=== PATIENT | female | born 1960 | race Caucasian/White ===

== ENCOUNTER 2018-03-25 08:02 | Emergency (ER) | payer MEDICARE, OTHER ==
[2018-03-25 08:27] VITALS: TEMP 97.9; BMI 27.3
--- NOTE | 2018-03-25 08:37 | PDOC ---
History of Present Illness - General Chief Complaint: Pain Stated Complaint: ABD PAIN Time Seen by Provider: 03/25/18 08:32 - History of Present Illness Initial Comments: 03/25/18 08:33 55 yo F history CVID, regenerative liver nodule, pulmonary fibrosis, pulmonary HTN, ITP s/p splenectomy, gastric erosions (found on EGD/colonoscopy few weeks ago) presents with diarrhea since night. Patient has has multiple episodes of vomiting and diarrhea on night/ early Sunday morning that got better over the weekend only to resume this morning. Patient has been on Amoxicillin for the past month for treatment of H.influenza. Patient is feeling weak but has managed to eat scramble eggs yesterday. Patient is coughing at baseline. Past History - Past Medical History Allergies/Adverse Reactions: Allergies Allergy/AdvReac Type Severity Reaction Status Date / Time levofloxacin [From Levaquin] Allergy Rash Verified 03/25/18 08:14 Home Medications: Ambulatory Orders Budesonide/Formeterol Fumarate [SYMBICORT 80/4.5mcg -] 1 inh PO BID 09/10/15 Folic Acid 1 mg PO DAILY 09/10/15 Gabapentin [Neurontin -] 300 mg PO BID 09/10/15 Oxycodone HCl 10 mg PO Q8H 09/10/15 Ursodiol 250 mg PO TID 09/10/15 Amoxicillin - [Amoxicillin 500mg Capsule -] 500 mg PO BID 03/25/18 Lisinopril/Hydrochlorothiazide [Lisinopril-Hctz 10-12.5 mg Tab] 1 each PO DAILY 03/25/18 Nadolol 10 mg PO BID 03/25/18 Sildenafil Citrate [Revatio] 20 mg PO TID 03/25/18 Anemia: Yes (Hemolytic anemia, ITP) COPD: No CHF: No GI Disorders: Yes (regenerative hyperplagia) HTN: Yes (pulmonary htn) Liver Disease: Yes (regenerative liver nodules) - Surgical History Abdominal Surgery: Yes (splenectomy for ITP) - Immunization History Td Vaccination: Yes TDAP Vaccination: Yes Immunization Up to Date: Yes - Suicide/Smoking/Psychosocial Hx Smoking Status: No Smoking History: Never smoked Have you smoked in the past 12 months: No Number of Cigarettes Smoked Daily: 0 If you are a former smoker, when did you quit?: 1997 Information on smoking cessation initiated: No Hx Alcohol Use: No Drug/Substance Use Hx: No Substance Use Type: None Review of Systems - Review of Systems Able to Perform ROS?: Yes Is the patient limited Albanian proficient: No Constitutional: Yes: Weakness HEENTM: No: Symptoms Reported Respiratory: No: Symptoms reported Cardiac (ROS): No: Symptoms Reported ABD/GI: Yes: See HPI : No: Symptoms Reported Musculoskeletal: No: Symptoms Reported Integumentary: No: Symptoms Reported All Other Systems: Reviewed and Negative *Physical Exam - Vital Signs Last Vital Signs Temp Pulse Resp BP Pulse Ox 97.9 F 75 16 106/65 100 03/25/18 08:21 12 08:21 12 08:21 03/25/18 08:21 03/25/18 08:21 - Physical Exam General Appearance: Yes: Nourished, Appropriately Dressed. No: Apparent Distress HEENT: positive: EOMI, INGRID, Normal ENT Inspection Respiratory/Chest: positive: Crackles. negative: Chest Tender Cardiovascular: positive: Regular Rhythm, Regular Rate, S1, S2 Gastrointestinal/Abdominal: positive: Normal Bowel Sounds, Tender (mildly tender b/l upper quadrants.), Flat, Soft Extremity: positive: Delayed Capillary Refill. negative: Pedal Edema Integumentary: positive: Dry, Pale Neurologic: positive: Fully Oriented, Alert, Normal Mood/Affect, Normal Response , Motor Strength 5/5 Moderate Sedation - Procedure Monitoring Vital Signs: Procedure Monitoring Vital Signs Temperature 97.9 F 03/25/18 08:21 Pulse Rate 75 03/25/18 08:21 Respiratory Rate 16 03/25/18 08:21 Blood Pressure 106/65 03/25/18 08:21 O2 Sat by Pulse Oximetry (%) 100 03/25/18 08:21 ED Treatment Course - LABORATORY CBC & Chemistry Diagram: 03/25/18 13:24 03/25/18 09:10 Medical Decision Making - Medical Decision Making 03/25/18 10:28 58F immunocompromised with diarrhea and vomiting. C.diff vs viral gastro enteritis vs opportunist infection Due to the patientr being compromised she is at risk for opportunist infections , especially from encapsulated bascteria. Will get basic labs, stool guaiac and cultures. . Spoke to Dr. Maddox to let her know patient was here. Will call back with update *DC/Admit/Observation/Transfer Diagnosis at time of Disposition: Viral gastroenteritis - Discharge Dispostion Disposition: HOME Condition at time of disposition: Improved - Referrals Referrals: Aurora Glez MD [Primary Care Provider] - - Patient Instructions Printed Discharge Instructions: DI for Dehydration -- Adult Additional Instructions: As discussed, follow up with Dr. Maddox tomorrow in the office. Your stool testing was positive for blood. While this may be due to your known gastric erosions, it must be followed up to make sure it is not due to a mass or cancer. Drink plenty of fluids and stay hydrated. Return to the emergency department if you have any new, worsening, or concerning symptoms - Post Discharge Activity
[2018-03-25] MEDS ORDERED: SODIUM CHLORIDE 1,000 ML IV STA (09:18)
[2018-03-25] MEDS ORDERED: ONDANSETRON 4 MG/2 ML VIAL IVPUSH ONE (09:32)
[2018-03-25] MEDS ORDERED: ONDANSETRON 4 MG/2 ML VIAL ONE (09:33)
--- NOTE | 2018-03-25 09:46 | PDOC ---
Attending Attestation - Resident Resident Name: MartinJosé Miguel - ED Attending Attestation I have performed the following: I have examined & evaluated the patient, The case was reviewed & discussed with the resident, I agree w/resident's findings & plan, Exceptions are as noted - HPI HPI: 03/25/18 09:46 58yo F hx CVID c/b MAC, pulmonary fibrosis, pulmonary HTN, ITP s/p splenectomy, gastric erosions presents to the ED with 3 days of diarrhea, nausea, and generalized weakness. Also reports intermittent subjective fevers. Pt reports diarrhea was initially yellow, now is regular brown. Very watery in nature, denies blood. Reports innumerable episodes of diarrhea, at times incontinent. Pt states she is often on abx as she is colonized. Reports upper abd cramping intermittently. Denies CP, SOB, headache, back pain, dysuria, frequency, focal weakness/numbness - Physicial Exam PE: 03/25/18 09:52 GENERAL: Awake, alert, and fully oriented, in no acute distress EYES: PERRLA, EOMI, sclera anicteric, conjunctiva clear ENT: Nares patent, oropharynx clear without exudates. dry mucosa NECK: Normal ROM, supple, no lymphadenopathy, JVD, or masses LUNGS: Breath sounds equal, clear to auscultation bilaterally. No wheezes, and no crackles HEART: Regular rate and rhythm, normal S1 and S2, no murmurs, rubs or gallops ABDOMEN: Soft, nontender, normoactive bowel sounds. No guarding, no rebound. No masses EXTREMITIES: Normal range of motion, no edema. No clubbing or cyanosis. No cords, erythema, or tenderness NEUROLOGICAL: Normal speech, cranial nerves intact, 5/5 strength in all 4 extremities, normal sensation to light touch in all 4 extremities, normal cerebellar exam, normal gait, normal tone SKIN: Warm, Dry, normal turgor, no rashes or lesions noted. - Medical Decision Making 03/25/18 09:56 58yo F with MMP including CVID c/b MAC, splenectomy presents to the ED with diarrhea, nausea, and weakness. Vitals unremarkable. Exam with dry MM, no abd ttp. DDx includes colitis possibly c.diff vs GIB vs gastroenteritis. Plan: -labs -stool occult -UA -IVF -discuss with PMD -dispo 03/25/18 14:20 W/u remarkable only for positive stool occult CBC was repeated after 4 hours found to be stable Remaining labs/UA wnl Case discussed with Dr. Miguel, wants to see pt in office tomorrow Will f/u on stool occult, refer to GI Pt ambulating in ED, feels well. Encouraged to keep drinking fluids I discussed the physical exam findings, ancillary test results and final diagnoses with the patient. I answered all of the patient's questions. The patient was satisfied with the care received and felt comfortable with the discharge plan and treatment plan. The patient will call their primary care physician within 24 hours to arrange follow-up and will return to the Emergency Department with any new, persistent or worsening symptoms.
[2018-03-25 09:54] LABS: BASO % 0.4 % (0-2.0); EOS % 0.2 % (0-4.5); HEMATOCRIT 46.7 % (32.4-45.2); HEMOGLOBIN 14.6 GM/dL (10.7-15.3); LYMPH % 17.3 % (8-40); MCH 29.3 pg (25.7-33.7); MCHC 31.3 g/dl (32.0-36.0); MEAN CELL VOLUME 93.8 fl (80-96); MEAN PLT VOLUME 11.7 fl (7.5-11.1); MONO % 12.7 % (3.8-10.2); NEUT % 69.4 % (42.8-82.8); PLATELET COUNT 201 K/MM3 (134-434); RBC 4.97 M/mm3 (3.60-5.2); RDW 16.3 % (11.6-15.6); WHITE BLOOD COUNT 4.8 K/mm3 (4.0-10.0)
[2018-03-25 10:26] LABS: ALBUMIN 3.1 g/dl (3.4-5.0); ALK PHOS 228 U/L (45-117); ANION GAP 6 MMOL/L (8-16); BILIRUBIN,TOTAL 0.5 mg/dL (0.2-1); BLOOD UREA NITROGEN 24 mg/dL (7-18); CALCIUM 8.4 mg/dL (8.5-10.1); CHLORIDE 101 mmol/L (98-107); CO2 29 mmol/L (21-32); CREATININE 0.8 mg/dL (0.55-1.3); GLUCOSE,RANDOM 82 mg/dL (74-106); POTASSIUM 4.3 mmol/L (3.5-5.1); SGOT/AST 30 U/L (15-37); SGPT/ALT 24 U/L (13-61); SODIUM 136 mmol/L (136-145); TOT PROT 6.5 g/dl (6.4-8.2)
[2018-03-25 10:51] LABS: INR 1.07 (0.83-1.09); PROTHROMBIN TIME (PATIENT) 12.6 SEC (9.7-13.0)
[2018-03-25 10:54] LABS: ACTIVATED PTT 31.9 SECONDS (25.2-36.5)
[2018-03-25 13:17] LABS: URINE APPEARANCE CLEAR; URINE BILIRUBIN NEGATIVE (<2.0 mg/dL); URINE COLOR LTYELLOW; URINE GLUCOSE (UA) NEGATIVE (NEGATIVE); URINE KETONE NEGATIVE (NEGATIVE); URINE LEUK ESTERASE TRACE (NEGATIVE); URINE NITRITE NEGATIVE (NEGATIVE); URINE PROTEIN NEGATIVE (NEGATIVE); URINE UROBILINOGEN NEGATIVE mg/dL (0.2-1.0)
[2018-03-25 13:31] LABS: EPI CELLS RARE /HPF (FEW); URINE MUCUS RARE
[2018-03-25 14:18] LABS: HEMATOCRIT 44.6 % (32.4-45.2); HEMOGLOBIN 15.3 GM/dL (10.7-15.3); MCH 31.4 pg (25.7-33.7); MCHC 34.3 g/dl (32.0-36.0); MEAN CELL VOLUME 91.8 fl (80-96); MEAN PLT VOLUME 12.2 fl (7.5-11.1); PLATELET COUNT 170 K/MM3 (134-434); RBC 4.86 M/mm3 (3.60-5.2); RDW 17.1 % (11.6-15.6); WHITE BLOOD COUNT 4.7 K/mm3 (4.0-10.0)
[2018-03-25 16:58] VITALS: BP 136/58; PULSE 69
== END 2018-03-25 16:00 | disposition home or self-care (01) ==
LOC: JER 08:02
PROC: 3E033GC Introduction of Other Therapeutic Substance into Peripheral Vein, Percutaneous Approach (ICD-10-PCS; principal; 2018-03-25)
PROC: 3E0337Z Introduction of Electrolytic and Water Balance Substance into Peripheral Vein, Percutaneous Approach (ICD-10-PCS; 2018-03-25)
DX: A08.4 Viral intestinal infection, unspecified (principal); I10 Essential (primary) hypertension; D58.9 Hereditary hemolytic anemia, unspecified; I27.20 Pulmonary hypertension, unspecified
CPT/HCPCS: 36415; 71046-TC-FY; 80053; 81003; 81015; 82272; 85025; 85027; 85610; 85730; 86850; 86900; 86901; 87045; 87046; 87086; 87324; 87449; 96361; 96374; 99283-25; J7030

== ENCOUNTER 2021-01-21 20:50 | Emergency (ER) | payer MEDICARE, OTHER ==
[2021-01-21 20:56] VITALS: BP 137/64; PULSE 75; TEMP 98; BMI 25.9
[2021-01-21 23:40] LABS: BASO % 0.3 % (0-2.0); EOS % 0.9 % (0-4.5); HEMATOCRIT 34.1 % (32.4-45.2); LYMPH % 13.5 % (8-40); MCH 29.1 pg (25.7-33.7); MCHC 32.2 g/dl (32.0-36.0); MEAN CELL VOLUME 90.3 fl (80-96); MEAN PLT VOLUME 8.7 fl (7.5-11.1); MONO % 20.9 % (3.8-10.2); NEUT % 64.4 % (42.8-82.8); PLATELET COUNT 457 10^3/uL (134-434); RBC 3.78 M/mm3 (3.60-5.2); RDW 17.1 % (11.6-15.6); WHITE BLOOD COUNT 10.4 K/mm3 (4.0-10.0)
[2021-01-22 00:01] LABS: CHLORIDE 105 mmol/L (98-107); SODIUM 143 mmol/L (136-145)
[2021-01-22 00:04] LABS: CALCIUM 8.8 mg/dL (8.5-10.1)
[2021-01-22 00:05] LABS: ALBUMIN 2.6 g/dl (3.4-5.0); ANION GAP 1 MMOL/L (8-16); BLOOD UREA NITROGEN 10.3 mg/dL (7-18); CO2 37 mmol/L (21-32); GLUCOSE,RANDOM 86 mg/dL (74-106)
[2021-01-22 00:08] LABS: CREATININE 0.5 mg/dL (0.55-1.3); SGOT/AST 19 U/L (15-37); SGPT/ALT 11 U/L (13-61)
[2021-01-22 00:10] LABS: BILIRUBIN,TOTAL 0.7 mg/dL (0.2-1); TOT PROT 6.6 g/dl (6.4-8.2)
[2021-01-22 00:11] LABS: ALK PHOS 309 U/L (45-117)
[2021-01-22 02:49] LABS: ANISOCYTOSIS 1+; CORRECTED WBC 9.37 K/mm3; MACROCYTOSIS 2+; PLATELET ESTIMATE NORMAL; TARGET CELLS 2+
== END 2021-01-22 01:06 | disposition home or self-care (01) ==
LOC: JER 20:50
DX: R60.9 Edema, unspecified (principal); S90.211A Contusion of right great toe with damage to nail, initial encounter; T88.7XXA Unspecified adverse effect of drug or medicament, initial encounter
CPT/HCPCS: 36415; 73610-TC-RT-FY; 73630-TC-RT-FY; 80053; 84484; 85025; 93971-TC; 99284-25

== ENCOUNTER 2021-11-20 09:59 | Inpatient (IN) | payer MEDICARE, OTHER ==
[2021-11-20 11:01] LABS: EPI CELLS 36 /uL (0-25.1); HYALINE CASTS 8 /uL (0-3.1); URINE APPEARANCE TURBID; URINE BACTERIA >9,000 /uL (0-1359); URINE BILIRUBIN 1+ (NEGATIVE); URINE COLOR DK YELLOW; URINE GLUCOSE (UA) NEGATIVE (NEGATIVE); URINE KETONE NEGATIVE (NEGATIVE); URINE LEUK ESTERASE 3+ (NEGATIVE); URINE NITRITE NEGATIVE (NEGATIVE); URINE PROTEIN TRACE (NEGATIVE); URINE RBC 12 /uL (0-23.9); URINE WBC 836 /uL (0-25.8)
[2021-11-20] MEDS ORDERED: CEFTRIAXONE 1,000 MG in DEXTROSE 5%-WATER - 50 ML IVPB ONE (11:04)
[2021-11-20 11:36] LABS: HEMATOCRIT 37.9 % (32.4-45.2); HEMOGLOBIN 12.4 GM/dL (10.7-15.3); MCH 30.4 pg (25.7-33.7); MCHC 32.7 g/dl (32.0-36.0); MEAN CELL VOLUME 92.9 fl (80-96); MEAN PLT VOLUME 10.7 fl (7.5-11.1); PLATELET COUNT 441 10^3/uL (134-434); RBC 4.08 M/mm3 (3.60-5.2); RDW 20.3 % (11.6-15.6); WHITE BLOOD COUNT 27.1 K/mm3 (4.0-10.0)
[2021-11-20 11:59] LABS: ALBUMIN 2.4 g/dl (3.4-5.0); MAGNESIUM 1.9 mg/dL (1.8-2.4)
[2021-11-20] MEDS ORDERED: CEFTRIAXONE 1 GM/50 ML BAG ONE (11:59)
[2021-11-20 12:02] LABS: CREATININE 0.9 mg/dL (0.55-1.3)
[2021-11-20 12:03] LABS: BILIRUBIN,TOTAL 3.6 mg/dL (0.2-1); TOT PROT 5.1 g/dl (6.4-8.2)
[2021-11-20 12:15] LABS: BILIRUBIN,DIRECT 1.7 mg/dL (0.0-0.2)
[2021-11-20] MEDS ORDERED: SODIUM CHLORIDE 0.9% 500 ML INFUS.BAG IV ONE (12:19)
[2021-11-20] MEDS ORDERED: DEXAMETHASONE SOD PHOSPHATE 10 MG/1 ML VIAL IVPUSH ONE (12:22)
[2021-11-20] MEDS ORDERED: DEXAMETHASONE SOD PHOSPHATE 10 MG/1 ML VIAL ONE (12:32)
[2021-11-20] MEDS ORDERED: BUDESONIDE/FORMETEROL FUMARATE 160/4.5 mcg INHALER IH ONE (16:10)
[2021-11-20] MEDS ORDERED: ALBUTEROL SO4 2.5/IPRATROPIUM 0.5 INH SOL 3 ML VIAL.NEB. NEB PRN (16:14)
[2021-11-20 18:38] VITALS: BMI 25.5
[2021-11-20] MEDS: URSODIOL 300 MG CAPSULE PO SCH (22:13)
[2021-11-20] MEDS: SILDENAFIL CITRATE 20 MG TAB PO SCH (22:13)
[2021-11-20] MEDS: ACETAMINOPHEN 325 MG TABLET (FP) PO PRN (22:18)
[2021-11-20] MEDS ORDERED: oxyCODONE HCL 5 MG TABLET PO ONE (22:38)
[2021-11-21] MEDS: DEXAMETHASONE SOD PHOSPHATE 10 MG/1 ML VIAL IVPUSH SCH ×3 (02:51→17:54)
[2021-11-21] MEDS: SILDENAFIL CITRATE 20 MG TAB PO SCH ×3 (05:17→23:16)
[2021-11-21] MEDS: URSODIOL 300 MG CAPSULE PO SCH ×3 (05:17→23:22)
[2021-11-21] MEDS ORDERED: CEFEPIME 2 GM in DEXTROSE 5%-WATER 100 ML IVPB SCH ×2 (10:00→18:00)
[2021-11-21] MEDS ORDERED: CEFEPIME 2 GM in DEXTROSE 5%-WATER - 100 ML IVPB SCH (10:00)
[2021-11-21] MEDS ORDERED: VANCOMYCIN 1 GM/200 ML PREMIX BAG IVPB SCH ×2 (10:00)
[2021-11-21 10:04] LABS: ALBUMIN 2.2 g/dl (3.4-5.0); CALCIUM 10.6 mg/dL (8.5-10.1)
[2021-11-21 10:05] LABS: BLOOD UREA NITROGEN 21.4 mg/dL (7-18)
[2021-11-21 10:07] LABS: CREATININE 0.5 mg/dL (0.55-1.3); PHOSPHOROUS 2.8 mg/dL (2.5-4.9)
[2021-11-21 10:09] LABS: TOT PROT 4.8 g/dl (6.4-8.2)
[2021-11-21 10:10] LABS: N-TERMINAL BNP 1913.1 pg/ml (5-125)
[2021-11-21] MEDS: ENOXAPARIN NA (PORCINE) 40 MG/0.4 ML DISP.SYRIN SQ SCH (10:32)
[2021-11-21] MEDS: NADOLOL 20 MG TABLET (FP) PO SCH (10:41)
[2021-11-21 11:56] LABS: HEMATOCRIT 39.3 % (32.4-45.2); HEMOGLOBIN 12.7 GM/dL (10.7-15.3); MCHC 32.3 g/dl (32.0-36.0); MEAN CELL VOLUME 92.9 fl (80-96); MEAN PLT VOLUME 11.1 fl (7.5-11.1); PLATELET COUNT 399 10^3/uL (134-434); RBC 4.23 M/mm3 (3.60-5.2); RDW 19.6 % (11.6-15.6)
[2021-11-21 11:57] LABS: INR 1.92 (0.83-1.09); PROTHROMBIN TIME (PATIENT) 22.2 SEC (9.7-13.0)
[2021-11-21 11:59] LABS: ACTIVATED PTT 35.4 SECONDS (25.2-36.5)
[2021-11-21 12:31] LABS: ANISOCYTOSIS 1+; MACROCYTOSIS 1+; TARGET CELLS 3+
[2021-11-21] MEDS: FUROSEMIDE 40 MG/4 ML INJECTABLE VIAL IVPUSH SCH (13:10)
[2021-11-21] MEDS ORDERED: REMDESIVIR 200 MG in SODIUM CHLORIDE 250 ML IVPB ONE (14:00)
[2021-11-21] MEDS: AZITHROMYCIN IVPB 500 MG/250 ML BAG IVPB SCH (16:04)
[2021-11-21] MEDS: PIPERACILLIN/TAZOB 4.5 GM 4.5 GM in DEXTROSE 5%-WATER 100 ML IVPB SCH (17:54)
[2021-11-21] MEDS: NYSTATIN 500,000 UNITS/5 ML SUSPENSION PO SCH ×2 (17:54→23:19)
[2021-11-21] MEDS: ACETAMINOPHEN 325 MG TABLET (FP) PO PRN (23:19)
[2021-11-22] MEDS: PIPERACILLIN/TAZOB 4.5 GM 4.5 GM in DEXTROSE 5%-WATER 100 ML IVPB SCH ×2 (02:39→09:55)
[2021-11-22] MEDS: DEXAMETHASONE SOD PHOSPHATE 10 MG/1 ML VIAL IVPUSH SCH ×3 (02:40→17:11)
[2021-11-22] MEDS: SILDENAFIL CITRATE 20 MG TAB PO SCH ×3 (06:16→21:26)
[2021-11-22] MEDS: URSODIOL 300 MG CAPSULE PO SCH ×2 (06:16→14:18)
[2021-11-22] MEDS: NYSTATIN 500,000 UNITS/5 ML SUSPENSION PO SCH ×3 (06:16→17:10)
[2021-11-22] MEDS: FUROSEMIDE 40 MG/4 ML INJECTABLE VIAL IVPUSH SCH (09:50)
[2021-11-22] MEDS: ENOXAPARIN NA (PORCINE) 40 MG/0.4 ML DISP.SYRIN SQ SCH (09:54)
[2021-11-22] MEDS: oxyCODONE HCL 5 MG TABLET PO PRN ×3 (10:05→21:26)
[2021-11-22] MEDS: NADOLOL 20 MG TABLET (FP) PO SCH (10:42)
[2021-11-22 11:18] LABS: HEMATOCRIT 37.5 % (32.4-45.2); HEMOGLOBIN 12.1 GM/dL (10.7-15.3); MCH 30.4 pg (25.7-33.7); MCHC 32.4 g/dl (32.0-36.0); MEAN PLT VOLUME 11.5 fl (7.5-11.1); PLATELET COUNT 338 10^3/uL (134-434); RBC 3.99 M/mm3 (3.60-5.2); RDW 20.7 % (11.6-15.6)
[2021-11-22 11:27] LABS: WHITE BLOOD COUNT 34.1 K/mm3 (4.0-10.0)
[2021-11-22 11:58] LABS: ALBUMIN 2.4 g/dl (3.4-5.0); BLOOD UREA NITROGEN 17.1 mg/dL (7-18); MAGNESIUM 1.8 mg/dL (1.8-2.4)
[2021-11-22 12:01] LABS: CREATININE 0.5 mg/dL (0.55-1.3); PHOSPHOROUS 2.5 mg/dL (2.5-4.9)
[2021-11-22 12:03] LABS: BILIRUBIN,TOTAL 3.1 mg/dL (0.2-1); TOT PROT 4.9 g/dl (6.4-8.2)
[2021-11-22] MEDS: AZITHROMYCIN IVPB 500 MG/250 ML BAG IVPB SCH (12:13)
[2021-11-22 12:32] LABS: ANISOCYTOSIS 0; MACROCYTOSIS 1+; TARGET CELLS 2+
[2021-11-22] MEDS: CEFEPIME 2 GM in DEXTROSE 5%-WATER 100 ML IVPB SCH ×2 (13:08→17:10)
[2021-11-22] MEDS: REMDESIVIR 100 MG in SODIUM CHLORIDE 250 ML IVPB SCH (14:18)
[2021-11-22] MEDS: ACETAMINOPHEN 325 MG TABLET (FP) PO PRN (21:24)
[2021-11-22] MEDS: diphenhydrAMINE HCL 25 MG CAPSULE (FP) PO PRN (21:26)
[2021-11-23] MEDS: URSODIOL 300 MG CAPSULE PO SCH ×4 (01:41→21:55)
[2021-11-23] MEDS: NYSTATIN 500,000 UNITS/5 ML SUSPENSION PO SCH ×4 (01:43→17:07)
[2021-11-23] MEDS: SILDENAFIL CITRATE 20 MG TAB PO SCH ×3 (06:09→21:55)
[2021-11-23] MEDS: oxyCODONE HCL 5 MG TABLET PO PRN ×3 (06:21→19:47)
[2021-11-23] MEDS: NADOLOL 20 MG TABLET (FP) PO SCH (10:24)
[2021-11-23] MEDS: FUROSEMIDE 40 MG/4 ML INJECTABLE VIAL IVPUSH SCH (10:24)
[2021-11-23] MEDS: CEFEPIME 2 GM in DEXTROSE 5%-WATER 100 ML IVPB SCH ×3 (10:25→17:22)
[2021-11-23] MEDS: ENOXAPARIN NA (PORCINE) 40 MG/0.4 ML DISP.SYRIN SQ SCH ×2 (10:25→10:42)
[2021-11-23] MEDS: ACETAMINOPHEN 325 MG TABLET (FP) PO PRN (10:26)
[2021-11-23] MEDS ORDERED: DEXAMETHASONE SOD PHOSPHATE 10 MG/1 ML VIAL IVPUSH SCH (10:30)
[2021-11-23] MEDS: DEXAMETHASONE SOD PHOSPHATE 10 MG/1 ML VIAL IVPUSH SCH (10:53)
[2021-11-23] MEDS: AZITHROMYCIN IVPB 500 MG/250 ML BAG IVPB SCH (10:55)
[2021-11-23 12:18] LABS: HEMATOCRIT 36.9 % (32.4-45.2); MCH 30.7 pg (25.7-33.7); MCHC 32.4 g/dl (32.0-36.0); MEAN CELL VOLUME 94.8 fl (80-96); MEAN PLT VOLUME 11.2 fl (7.5-11.1); PLATELET COUNT 307 10^3/uL (134-434); RBC 3.89 M/mm3 (3.60-5.2); RDW 20.7 % (11.6-15.6)
[2021-11-23 12:28] LABS: WHITE BLOOD COUNT 31.9 K/mm3 (4.0-10.0)
[2021-11-23 12:48] LABS: ALBUMIN 2.3 g/dl (3.4-5.0); BLOOD UREA NITROGEN 15.1 mg/dL (7-18); CALCIUM 10.6 mg/dL (8.5-10.1)
[2021-11-23 12:50] LABS: CREATININE 0.5 mg/dL (0.55-1.3)
[2021-11-23 12:52] LABS: BILIRUBIN,TOTAL 2.9 mg/dL (0.2-1); TOT PROT 4.9 g/dl (6.4-8.2)
[2021-11-23 14:14] LABS: ANISOCYTOSIS 2+; MACROCYTOSIS 2+; TARGET CELLS 2+
[2021-11-23] MEDS: REMDESIVIR 100 MG in SODIUM CHLORIDE 250 ML IVPB SCH (14:29)
[2021-11-23] MEDS: POTASSIUM CHLORIDE TABS 20 MEQ TABLET.ER (FP) PO SCH (14:33)
[2021-11-24] MEDS: NYSTATIN 500,000 UNITS/5 ML SUSPENSION PO SCH ×4 (00:52→17:18)
[2021-11-24] MEDS: oxyCODONE HCL 5 MG TABLET PO PRN ×5 (01:20→22:38)
[2021-11-24] MEDS: CEFEPIME 2 GM in DEXTROSE 5%-WATER 100 ML IVPB SCH ×3 (01:40→17:18)
[2021-11-24] MEDS: SILDENAFIL CITRATE 20 MG TAB PO SCH ×3 (06:00→22:38)
[2021-11-24] MEDS: URSODIOL 300 MG CAPSULE PO SCH ×3 (06:23→22:39)
[2021-11-24] MEDS: FUROSEMIDE 40 MG/4 ML INJECTABLE VIAL IVPUSH SCH (09:16)
[2021-11-24] MEDS: POTASSIUM CHLORIDE TABS 20 MEQ TABLET.ER (FP) PO SCH (09:16)
[2021-11-24] MEDS: NADOLOL 20 MG TABLET (FP) PO SCH (09:16)
[2021-11-24] MEDS: ENOXAPARIN NA (PORCINE) 40 MG/0.4 ML DISP.SYRIN SQ SCH (09:22)
[2021-11-24] MEDS ORDERED: DEXAMETHASONE 4 MG TABLET (FP) PO SCH (10:00)
[2021-11-24] MEDS: AZITHROMYCIN IVPB 500 MG/250 ML BAG IVPB SCH (10:15)
[2021-11-24 12:07] LABS: HEMOGLOBIN 12.8 GM/dL (10.7-15.3); MCH 30.5 pg (25.7-33.7); MCHC 31.9 g/dl (32.0-36.0); MEAN CELL VOLUME 95.5 fl (80-96); MEAN PLT VOLUME 11.6 fl (7.5-11.1); PLATELET COUNT 300 10^3/uL (134-434); RBC 4.19 M/mm3 (3.60-5.2); RDW 20.8 % (11.6-15.6)
[2021-11-24 12:23] LABS: WHITE BLOOD COUNT 30.3 K/mm3 (4.0-10.0)
[2021-11-24 12:32] LABS: CALCIUM 10.8 mg/dL (8.5-10.1)
[2021-11-24 12:33] LABS: ALBUMIN 2.6 g/dl (3.4-5.0); BLOOD UREA NITROGEN 14.1 mg/dL (7-18)
[2021-11-24 12:36] LABS: CREATININE 0.4 mg/dL (0.55-1.3)
[2021-11-24 12:38] LABS: BILIRUBIN,TOTAL 3.4 mg/dL (0.2-1); TOT PROT 5.2 g/dl (6.4-8.2)
[2021-11-24 13:54] LABS: ANISOCYTOSIS 1+; MACROCYTOSIS 1+; PLATELET ESTIMATE NORMAL; TARGET CELLS 2+
[2021-11-24] MEDS ORDERED: IMMUN GLOB G(IGG)/PRO/IGA 0-50 400 ML, IMMUN GLOB G(IGG)/PRO/IGA 0-50 100 ML IVPB ONE (14:00)
[2021-11-24] MEDS: REMDESIVIR 100 MG in SODIUM CHLORIDE 250 ML IVPB SCH (14:25)
[2021-11-24] MEDS: diphenhydrAMINE HCL 25 MG CAPSULE (FP) PO PRN (15:38)
[2021-11-24] MEDS: ACETAMINOPHEN 325 MG TABLET (FP) PO PRN (15:38)
[2021-11-25] MEDS: NYSTATIN 500,000 UNITS/5 ML SUSPENSION PO SCH ×4 (00:17→17:23)
[2021-11-25] MEDS: CEFEPIME 2 GM in DEXTROSE 5%-WATER 100 ML IVPB SCH ×3 (01:53→17:23)
[2021-11-25] MEDS: SILDENAFIL CITRATE 20 MG TAB PO SCH ×3 (05:30→21:01)
[2021-11-25] MEDS: oxyCODONE HCL 5 MG TABLET PO PRN ×3 (05:31→21:53)
[2021-11-25] MEDS: URSODIOL 300 MG CAPSULE PO SCH ×3 (06:28→21:52)
[2021-11-25] MEDS ORDERED: ALBUTEROL SO4 HFA INHALER IH PRN (07:58)
[2021-11-25] MEDS: ENOXAPARIN NA (PORCINE) 40 MG/0.4 ML DISP.SYRIN SQ SCH ×2 (09:05→09:56)
[2021-11-25] MEDS: DEXAMETHASONE 4 MG TABLET (FP) PO SCH (09:06)
[2021-11-25] MEDS: POTASSIUM CHLORIDE TABS 20 MEQ TABLET.ER (FP) PO SCH (09:06)
[2021-11-25] MEDS: NADOLOL 20 MG TABLET (FP) PO SCH (09:06)
[2021-11-25] MEDS: AZITHROMYCIN IVPB 500 MG/250 ML BAG IVPB SCH (09:07)
[2021-11-25] MEDS: DEXAMETHASONE SOD PHOSPHATE 10 MG/1 ML VIAL IVPUSH SCH (09:08)
[2021-11-25] MEDS: BUDESONIDE/FORMETEROL FUMARATE 160/4.5 mcg INHALER IH SCH ×2 (09:11→21:01)
[2021-11-25] MEDS: CHOLECALCIFEROL (VIT D3) 5000 UNITS (125 MCG) CAP PO SCH (09:11)
[2021-11-25] MEDS: FOLIC ACID 1 MG TABLET (FP) PO SCH (09:11)
[2021-11-25] MEDS: REMDESIVIR 100 MG in SODIUM CHLORIDE 250 ML IVPB SCH (14:04)
[2021-11-25 14:49] LABS: HEMATOCRIT 37.3 % (32.4-45.2); MCH 30.8 pg (25.7-33.7); MCHC 32.3 g/dl (32.0-36.0); MEAN CELL VOLUME 95.2 fl (80-96); MEAN PLT VOLUME 11.8 fl (7.5-11.1); PLATELET COUNT 267 10^3/uL (134-434); RBC 3.92 M/mm3 (3.60-5.2); RDW 20.9 % (11.6-15.6)
[2021-11-25 14:56] LABS: WHITE BLOOD COUNT 34.6 K/mm3 (4.0-10.0)
[2021-11-25 15:12] LABS: ALBUMIN 2.3 g/dl (3.4-5.0); BLOOD UREA NITROGEN 13.8 mg/dL (7-18)
[2021-11-25 15:15] LABS: CREATININE 0.5 mg/dL (0.55-1.3)
[2021-11-25 15:17] LABS: BILIRUBIN,TOTAL 3.1 mg/dL (0.2-1); TOT PROT 4.9 g/dl (6.4-8.2)
[2021-11-25] MEDS ORDERED: guaiFENesin 200 MG/10 ML 10 ML UNIT-DOSE CUPS PO ONE (22:14)
[2021-11-26] MEDS: NYSTATIN 500,000 UNITS/5 ML SUSPENSION PO SCH ×4 (00:39→18:57)
[2021-11-26] MEDS: oxyCODONE HCL 5 MG TABLET PO PRN ×4 (01:44→17:37)
[2021-11-26] MEDS: CEFEPIME 2 GM in DEXTROSE 5%-WATER 100 ML IVPB SCH ×3 (01:46→18:55)
[2021-11-26] MEDS: SILDENAFIL CITRATE 20 MG TAB PO SCH ×3 (06:10→21:06)
[2021-11-26] MEDS: URSODIOL 300 MG CAPSULE PO SCH ×3 (06:13→21:06)
[2021-11-26] MEDS ORDERED: guaiFENesin 200 MG/10 ML 10 ML UNIT-DOSE CUPS PO PRN (07:34)
[2021-11-26 09:01] LABS: HEMATOCRIT 37.1 % (32.4-45.2); HEMOGLOBIN 12.2 GM/dL (10.7-15.3); MCH 31.2 pg (25.7-33.7); MCHC 32.8 g/dl (32.0-36.0); MEAN CELL VOLUME 95.1 fl (80-96); MEAN PLT VOLUME 11.2 fl (7.5-11.1); PLATELET COUNT 236 10^3/uL (134-434); RBC 3.91 M/mm3 (3.60-5.2); RDW 20.4 % (11.6-15.6)
[2021-11-26] MEDS: ENOXAPARIN NA (PORCINE) 40 MG/0.4 ML DISP.SYRIN SQ SCH (09:10)
[2021-11-26 09:11] LABS: WHITE BLOOD COUNT 31.4 K/mm3 (4.0-10.0)
[2021-11-26] MEDS: FOLIC ACID 1 MG TABLET (FP) PO SCH (09:11)
[2021-11-26] MEDS: POTASSIUM CHLORIDE TABS 20 MEQ TABLET.ER (FP) PO SCH (09:11)
[2021-11-26] MEDS: DEXAMETHASONE 4 MG TABLET (FP) PO SCH (09:12)
[2021-11-26] MEDS: CHOLECALCIFEROL (VIT D3) 5000 UNITS (125 MCG) CAP PO SCH (09:12)
[2021-11-26] MEDS: AZITHROMYCIN IVPB 500 MG/250 ML BAG IVPB SCH (09:14)
[2021-11-26 09:24] LABS: CALCIUM 9.9 mg/dL (8.5-10.1)
[2021-11-26 09:25] LABS: ALBUMIN 2.3 g/dl (3.4-5.0); BLOOD UREA NITROGEN 12.7 mg/dL (7-18)
[2021-11-26 09:28] LABS: CREATININE 0.3 mg/dL (0.55-1.3)
[2021-11-26 09:30] LABS: BILIRUBIN,TOTAL 2.8 mg/dL (0.2-1); TOT PROT 4.6 g/dl (6.4-8.2)
[2021-11-26] MEDS: NADOLOL 20 MG TABLET (FP) PO SCH (10:15)
[2021-11-26] MEDS ORDERED: IMMUNE GLOBULIN (IgG) 20 GM VIAL IVPB ONE (11:22)
[2021-11-26] MEDS ORDERED: IMMUN GLOB G(IGG)/PRO/IGA 0-50 400 ML, IMMUN GLOB G(IGG)/PRO/IGA 0-50 100 ML IVPB ONE ×2 (11:30→11:45)
[2021-11-26] MEDS: BUDESONIDE/FORMETEROL FUMARATE 160/4.5 mcg INHALER IH SCH ×2 (12:41→21:08)
[2021-11-26] MEDS: diphenhydrAMINE HCL 25 MG CAPSULE (FP) PO PRN (12:42)
[2021-11-26] MEDS: ACETAMINOPHEN 325 MG TABLET (FP) PO PRN (13:06)
[2021-11-26] MEDS ORDERED: CEFEPIME HCL 2 GM VIAL (RESTRICTED TO ID) ONE (17:45)
[2021-11-27] MEDS: NYSTATIN 500,000 UNITS/5 ML SUSPENSION PO SCH ×4 (01:13→18:13)
[2021-11-27] MEDS: oxyCODONE HCL 5 MG TABLET PO PRN ×3 (01:19→18:37)
[2021-11-27] MEDS: CEFEPIME 2 GM in DEXTROSE 5%-WATER 100 ML IVPB SCH ×3 (01:19→18:13)
[2021-11-27] MEDS: URSODIOL 300 MG CAPSULE PO SCH ×3 (07:04→21:46)
[2021-11-27] MEDS: SILDENAFIL CITRATE 20 MG TAB PO SCH ×3 (07:04→21:46)
[2021-11-27 09:54] LABS: HEMATOCRIT 36.9 % (32.4-45.2); HEMOGLOBIN 11.9 GM/dL (10.7-15.3); MCH 30.9 pg (25.7-33.7); MCHC 32.2 g/dl (32.0-36.0); MEAN CELL VOLUME 96.1 fl (80-96); MEAN PLT VOLUME 11.7 fl (7.5-11.1); PLATELET COUNT 232 10^3/uL (134-434); RBC 3.84 M/mm3 (3.60-5.2); RDW 20.7 % (11.6-15.6)
[2021-11-27 10:19] LABS: ALBUMIN 2.2 g/dl (3.4-5.0); BLOOD UREA NITROGEN 13.8 mg/dL (7-18); WHITE BLOOD COUNT 32.1 K/mm3 (4.0-10.0)
[2021-11-27 10:22] LABS: CREATININE 0.3 mg/dL (0.55-1.3)
[2021-11-27 10:24] LABS: BILIRUBIN,TOTAL 2.3 mg/dL (0.2-1); TOT PROT 5.6 g/dl (6.4-8.2)
[2021-11-27] MEDS: CHOLECALCIFEROL (VIT D3) 5000 UNITS (125 MCG) CAP PO SCH (10:40)
[2021-11-27] MEDS: ENOXAPARIN NA (PORCINE) 40 MG/0.4 ML DISP.SYRIN SQ SCH (10:40)
[2021-11-27] MEDS: BUDESONIDE/FORMETEROL FUMARATE 160/4.5 mcg INHALER IH SCH ×2 (10:40→21:47)
[2021-11-27] MEDS: AZITHROMYCIN IVPB 500 MG/250 ML BAG IVPB SCH (10:40)
[2021-11-27] MEDS: FOLIC ACID 1 MG TABLET (FP) PO SCH (10:40)
[2021-11-27] MEDS: NADOLOL 20 MG TABLET (FP) PO SCH (10:40)
[2021-11-27] MEDS: POTASSIUM CHLORIDE TABS 20 MEQ TABLET.ER (FP) PO SCH (10:40)
[2021-11-27] MEDS: DEXAMETHASONE 4 MG TABLET (FP) PO SCH (10:40)
[2021-11-27] MEDS ORDERED: CEFEPIME HCL 2 GM VIAL (RESTRICTED TO ID) ONE (11:14)
[2021-11-27] MEDS ORDERED: ALPRAZolam 0.25 MG TABLET PO ONE (15:50)
[2021-11-28 00:07] LABS: IGA IMMUNOGLOBULIN 7 mg/dL (87-352); IGM QN SERUM <5 mg/dL (26-217)
[2021-11-28] MEDS: CEFEPIME 2 GM in DEXTROSE 5%-WATER 100 ML IVPB SCH ×3 (01:36→17:10)
[2021-11-28] MEDS: NYSTATIN 500,000 UNITS/5 ML SUSPENSION PO SCH ×4 (01:36→18:43)
[2021-11-28] MEDS: oxyCODONE HCL 5 MG TABLET PO PRN ×4 (02:33→17:10)
[2021-11-28] MEDS: URSODIOL 300 MG CAPSULE PO SCH ×3 (06:54→22:31)
[2021-11-28] MEDS: SILDENAFIL CITRATE 20 MG TAB PO SCH ×3 (06:54→22:31)
[2021-11-28] MEDS ORDERED: ALPRAZolam 0.25 MG TABLET PO ONE ×2 (08:50→17:15)
[2021-11-28 08:52] LABS: HEMATOCRIT 34.2 % (32.4-45.2); HEMOGLOBIN 11.1 GM/dL (10.7-15.3); MCHC 32.4 g/dl (32.0-36.0); MEAN CELL VOLUME 95.7 fl (80-96); MEAN PLT VOLUME 11.5 fl (7.5-11.1); PLATELET COUNT 228 10^3/uL (134-434); RBC 3.57 M/mm3 (3.60-5.2); RDW 20.7 % (11.6-15.6)
[2021-11-28 09:04] LABS: WHITE BLOOD COUNT 32.4 K/mm3 (4.0-10.0)
[2021-11-28 10:00] LABS: ANISOCYTOSIS 2+; MACROCYTOSIS 1+
[2021-11-28] MEDS: NADOLOL 20 MG TABLET (FP) PO SCH (10:15)
[2021-11-28] MEDS: POTASSIUM CHLORIDE TABS 20 MEQ TABLET.ER (FP) PO SCH (10:15)
[2021-11-28] MEDS: FOLIC ACID 1 MG TABLET (FP) PO SCH (10:16)
[2021-11-28] MEDS: DEXAMETHASONE 4 MG TABLET (FP) PO SCH (10:16)
[2021-11-28] MEDS: CHOLECALCIFEROL (VIT D3) 5000 UNITS (125 MCG) CAP PO SCH (10:16)
[2021-11-28] MEDS: BUDESONIDE/FORMETEROL FUMARATE 160/4.5 mcg INHALER IH SCH ×2 (10:16→22:31)
[2021-11-28] MEDS: ENOXAPARIN NA (PORCINE) 40 MG/0.4 ML DISP.SYRIN SQ SCH (10:25)
[2021-11-28] MEDS: AZITHROMYCIN IVPB 500 MG/250 ML BAG IVPB SCH (11:13)
[2021-11-28] MEDS: guaiFENesin 200 MG/10 ML 10 ML UNIT-DOSE CUPS PO PRN (11:18)
[2021-11-28 16:07] LABS: IGG QN IMMUNOGLOBULIN 697 mg/dL (586-1602); IGG SUBCLASS 1 359 mg/dL (248-810); IGG SUBCLASS 2 275 mg/dL (130-555); IGG SUBCLASS 3 17 mg/dL (15-102)
[2021-11-28] MEDS: DOCUSATE SODIUM 100 MG CAPSULE (FP) PO PRN (17:09)
[2021-11-29] MEDS: oxyCODONE HCL 5 MG TABLET PO PRN ×4 (00:32→22:22)
[2021-11-29] MEDS: NYSTATIN 500,000 UNITS/5 ML SUSPENSION PO SCH ×4 (00:33→18:41)
[2021-11-29] MEDS: CEFEPIME 2 GM in DEXTROSE 5%-WATER 100 ML IVPB SCH ×3 (02:50→18:41)
[2021-11-29] MEDS: URSODIOL 300 MG CAPSULE PO SCH ×3 (06:50→22:22)
[2021-11-29] MEDS: SILDENAFIL CITRATE 20 MG TAB PO SCH ×3 (06:50→22:22)
[2021-11-29 09:27] LABS: HEMATOCRIT 37.6 % (32.4-45.2); HEMOGLOBIN 12.1 GM/dL (10.7-15.3); MCH 30.9 pg (25.7-33.7); MCHC 32.2 g/dl (32.0-36.0); MEAN CELL VOLUME 95.7 fl (80-96); MEAN PLT VOLUME 11.4 fl (7.5-11.1); PLATELET COUNT 255 10^3/uL (134-434); RBC 3.92 M/mm3 (3.60-5.2); RDW 20.2 % (11.6-15.6); WHITE BLOOD COUNT 27.9 K/mm3 (4.0-10.0)
[2021-11-29 10:07] LABS: CREATININE 0.4 mg/dL (0.55-1.3)
[2021-11-29 10:08] LABS: ALBUMIN 2.2 g/dl (3.4-5.0); TOT PROT 5.6 g/dl (6.4-8.2)
[2021-11-29 10:09] LABS: BLOOD UREA NITROGEN 15.6 mg/dL (7-18)
[2021-11-29 10:10] LABS: CALCIUM 10.6 mg/dL (8.5-10.1)
[2021-11-29] MEDS: POTASSIUM CHLORIDE TABS 20 MEQ TABLET.ER (FP) PO SCH (10:10)
[2021-11-29] MEDS: DEXAMETHASONE 4 MG TABLET (FP) PO SCH (10:10)
[2021-11-29] MEDS: FOLIC ACID 1 MG TABLET (FP) PO SCH (10:11)
[2021-11-29] MEDS: NADOLOL 20 MG TABLET (FP) PO SCH (10:11)
[2021-11-29] MEDS: CHOLECALCIFEROL (VIT D3) 5000 UNITS (125 MCG) CAP PO SCH (10:11)
[2021-11-29] MEDS: BUDESONIDE/FORMETEROL FUMARATE 160/4.5 mcg INHALER IH SCH ×2 (10:11→22:23)
[2021-11-29] MEDS: guaiFENesin 200 MG/10 ML 10 ML UNIT-DOSE CUPS PO PRN (10:14)
[2021-11-29] MEDS: ENOXAPARIN NA (PORCINE) 40 MG/0.4 ML DISP.SYRIN SQ SCH (10:17)
[2021-11-29] MEDS: DOCUSATE SODIUM 100 MG CAPSULE (FP) PO PRN (11:54)
[2021-11-30] MEDS: NYSTATIN 500,000 UNITS/5 ML SUSPENSION PO SCH ×4 (02:58→16:59)
[2021-11-30] MEDS: CEFEPIME 2 GM in DEXTROSE 5%-WATER 100 ML IVPB SCH ×3 (02:58→16:59)
[2021-11-30] MEDS: URSODIOL 300 MG CAPSULE PO SCH ×3 (06:21→22:12)
[2021-11-30] MEDS: SILDENAFIL CITRATE 20 MG TAB PO SCH ×3 (06:22→22:12)
[2021-11-30] MEDS: oxyCODONE HCL 5 MG TABLET PO PRN ×3 (09:45→22:15)
[2021-11-30] MEDS: DOCUSATE SODIUM 100 MG CAPSULE (FP) PO PRN ×2 (09:47→22:15)
[2021-11-30] MEDS: FOLIC ACID 1 MG TABLET (FP) PO SCH (09:47)
[2021-11-30] MEDS: NADOLOL 20 MG TABLET (FP) PO SCH (09:47)
[2021-11-30] MEDS: CHOLECALCIFEROL (VIT D3) 5000 UNITS (125 MCG) CAP PO SCH (09:48)
[2021-11-30] MEDS: BUDESONIDE/FORMETEROL FUMARATE 160/4.5 mcg INHALER IH SCH ×2 (09:48→22:13)
[2021-11-30] MEDS: POTASSIUM CHLORIDE TABS 20 MEQ TABLET.ER (FP) PO SCH (09:48)
[2021-11-30] MEDS: ENOXAPARIN NA (PORCINE) 40 MG/0.4 ML DISP.SYRIN SQ SCH (09:48)
[2021-11-30] MEDS: guaiFENesin 200 MG/10 ML 10 ML UNIT-DOSE CUPS PO PRN (09:49)
[2021-11-30] MEDS ORDERED: POLYETHYLENE GLYCOL (HEALTHYLAX) 3350 17 GM PACKET PO PRN (09:57)
[2021-11-30 10:39] LABS: HEMATOCRIT 35.5 % (32.4-45.2); HEMOGLOBIN 11.5 GM/dL (10.7-15.3); MCH 31.7 pg (25.7-33.7); MCHC 32.5 g/dl (32.0-36.0); MEAN CELL VOLUME 97.6 fl (80-96); PLATELET COUNT 234 10^3/uL (134-434); RBC 3.64 M/mm3 (3.60-5.2); RDW 20.9 % (11.6-15.6)
[2021-11-30 10:43] LABS: CHLORIDE 98 mmol/L (98-107); SODIUM 131 mmol/L (136-145)
[2021-11-30 10:45] LABS: ALBUMIN 2.1 g/dl (3.4-5.0); BLOOD UREA NITROGEN 21.5 mg/dL (7-18); CALCIUM 10.5 mg/dL (8.5-10.1); CO2 28 mmol/L (21-32); GLUCOSE,RANDOM 154 mg/dL (74-106)
[2021-11-30 10:48] LABS: CREATININE 0.6 mg/dL (0.55-1.3); SGPT/ALT 24 U/L (13-61)
[2021-11-30 10:50] LABS: BILIRUBIN,TOTAL 1.9 mg/dL (0.2-1); SGOT/AST 57 U/L (15-37); TOT PROT 5.6 g/dl (6.4-8.2)
[2021-11-30 10:51] LABS: ALK PHOS 186 U/L (45-117)
[2021-11-30 10:52] LABS: ANION GAP 5 MMOL/L (8-16)
[2021-11-30 10:53] LABS: WHITE BLOOD COUNT 30.2 K/mm3 (4.0-10.0)
[2021-11-30] MEDS ORDERED: DEXTROSE 50%-WATER 25 GM/50 ML DISP.SYRIN IVPUSH ONE (11:17)
[2021-11-30] MEDS ORDERED: INSULIN REGULAR HUMAN 100 UNITS/ML *VIAL SQ ONE (11:19)
[2021-11-30] MEDS ORDERED: CALCIUM GLUCONATE IN NACL 1 GM/50 ML BAG IVPB ONE (11:30)
[2021-11-30] MEDS: SODIUM ZIRCONIUM CYCLOSILICATE (LOKELMA) 5 GM PACKET PO SCH (12:01)
[2021-11-30 13:26] LABS: BLOOD UREA NITROGEN 21.3 mg/dL (7-18); CALCIUM 10.9 mg/dL (8.5-10.1)
[2021-11-30 13:30] LABS: CREATININE 0.4 mg/dL (0.55-1.3)
[2021-12-01] MEDS: NYSTATIN 500,000 UNITS/5 ML SUSPENSION PO SCH ×4 (00:38→17:46)
[2021-12-01] MEDS: CEFEPIME 2 GM in DEXTROSE 5%-WATER 100 ML IVPB SCH ×3 (02:25→17:51)
[2021-12-01] MEDS: URSODIOL 300 MG CAPSULE PO SCH ×3 (06:51→21:34)
[2021-12-01] MEDS: SILDENAFIL CITRATE 20 MG TAB PO SCH ×3 (06:51→21:34)
[2021-12-01] MEDS: oxyCODONE HCL 5 MG TABLET PO PRN ×4 (06:57→22:13)
[2021-12-01] MEDS: CHOLECALCIFEROL (VIT D3) 5000 UNITS (125 MCG) CAP PO SCH (09:18)
[2021-12-01] MEDS: ENOXAPARIN NA (PORCINE) 40 MG/0.4 ML DISP.SYRIN SQ SCH (09:18)
[2021-12-01] MEDS: NADOLOL 20 MG TABLET (FP) PO SCH (09:19)
[2021-12-01] MEDS: FOLIC ACID 1 MG TABLET (FP) PO SCH (09:19)
[2021-12-01 09:20] LABS: MCH 32.4 pg (25.7-33.7); MCHC 33.4 g/dl (32.0-36.0); MEAN CELL VOLUME 96.9 fl (80-96); MEAN PLT VOLUME 11.1 fl (7.5-11.1); PLATELET COUNT 266 10^3/uL (134-434); RBC 3.72 M/mm3 (3.60-5.2); RDW 20.5 % (11.6-15.6)
[2021-12-01] MEDS: BUDESONIDE/FORMETEROL FUMARATE 160/4.5 mcg INHALER IH SCH ×2 (09:22→21:34)
[2021-12-01 10:12] LABS: CHOLESTEROL 87 mg/dL (50-200); TRIGLYCERIDES 53 mg/dL (0-150)
[2021-12-01 10:13] LABS: LDL CHOLESTEROL (ONLY SJRH) 31 mg/dL (5-100)
[2021-12-01 10:16] LABS: HDL CHOLESTEROL 46 mg/dL (40-60)
[2021-12-01 10:18] LABS: WHITE BLOOD COUNT 30.1 K/mm3 (4.0-10.0)
[2021-12-01 10:26] LABS: CALCIUM 11.4 mg/dL (8.5-10.1)
[2021-12-01 10:33] LABS: ALBUMIN 2.2 g/dl (3.4-5.0); BLOOD UREA NITROGEN 16.4 mg/dL (7-18)
[2021-12-01 10:34] LABS: BILIRUBIN,TOTAL 1.6 mg/dL (0.2-1)
[2021-12-01 10:36] LABS: CREATININE 0.3 mg/dL (0.55-1.3)
[2021-12-01] MEDS: SODIUM ZIRCONIUM CYCLOSILICATE (LOKELMA) 5 GM PACKET PO SCH (10:46)
[2021-12-02] MEDS: NYSTATIN 500,000 UNITS/5 ML SUSPENSION PO SCH ×4 (00:52→17:09)
[2021-12-02] MEDS: CEFEPIME 2 GM in DEXTROSE 5%-WATER 100 ML IVPB SCH ×3 (02:56→17:08)
[2021-12-02] MEDS: guaiFENesin 200 MG/10 ML 10 ML UNIT-DOSE CUPS PO PRN (03:05)
[2021-12-02] MEDS: SILDENAFIL CITRATE 20 MG TAB PO SCH ×3 (06:18→22:56)
[2021-12-02] MEDS: URSODIOL 300 MG CAPSULE PO SCH ×3 (06:18→22:56)
[2021-12-02] MEDS: oxyCODONE HCL 5 MG TABLET PO PRN ×4 (06:23→23:05)
[2021-12-02] MEDS: NADOLOL 20 MG TABLET (FP) PO SCH (10:05)
[2021-12-02] MEDS: FOLIC ACID 1 MG TABLET (FP) PO SCH (10:06)
[2021-12-02] MEDS: BUDESONIDE/FORMETEROL FUMARATE 160/4.5 mcg INHALER IH SCH ×2 (10:07→22:57)
[2021-12-02] MEDS: SODIUM ZIRCONIUM CYCLOSILICATE (LOKELMA) 5 GM PACKET PO SCH (10:07)
[2021-12-02] MEDS: ENOXAPARIN NA (PORCINE) 40 MG/0.4 ML DISP.SYRIN SQ SCH ×2 (10:07→10:43)
[2021-12-02] MEDS: CHOLECALCIFEROL (VIT D3) 5000 UNITS (125 MCG) CAP PO SCH (10:07)
[2021-12-02 10:44] LABS: HEMOGLOBIN 11.8 GM/dL (10.7-15.3); MCH 31.1 pg (25.7-33.7); MCHC 31.8 g/dl (32.0-36.0); MEAN CELL VOLUME 97.9 fl (80-96); MEAN PLT VOLUME 11.7 fl (7.5-11.1); PLATELET COUNT 264 10^3/uL (134-434); RBC 3.78 M/mm3 (3.60-5.2); RDW 20.4 % (11.6-15.6)
[2021-12-02 11:17] LABS: CALCIUM 10.7 mg/dL (8.5-10.1)
[2021-12-02 11:20] LABS: CREATININE 0.3 mg/dL (0.55-1.3)
[2021-12-02 11:22] LABS: BILIRUBIN,TOTAL 1.7 mg/dL (0.2-1); TOT PROT 4.7 g/dl (6.4-8.2)
[2021-12-02] MEDS ORDERED: CEFEPIME HCL 2 GM VIAL (RESTRICTED TO ID) ONE (17:02)
[2021-12-02] MEDS: DOCUSATE SODIUM 100 MG CAPSULE (FP) PO PRN (17:25)
[2021-12-03] MEDS: NYSTATIN 500,000 UNITS/5 ML SUSPENSION PO SCH ×4 (01:52→18:09)
[2021-12-03] MEDS: CEFEPIME 2 GM in DEXTROSE 5%-WATER 100 ML IVPB SCH (01:55)
[2021-12-03] MEDS: DOCUSATE SODIUM 100 MG CAPSULE (FP) PO PRN (03:46)
[2021-12-03] MEDS: oxyCODONE HCL 5 MG TABLET PO PRN ×4 (03:46→21:12)
[2021-12-03] MEDS: SILDENAFIL CITRATE 20 MG TAB PO SCH ×3 (07:04→21:12)
[2021-12-03] MEDS: URSODIOL 300 MG CAPSULE PO SCH ×3 (07:04→21:12)
[2021-12-03] MEDS: ENOXAPARIN NA (PORCINE) 40 MG/0.4 ML DISP.SYRIN SQ SCH (10:36)
[2021-12-03] MEDS: NADOLOL 20 MG TABLET (FP) PO SCH (10:36)
[2021-12-03] MEDS: FOLIC ACID 1 MG TABLET (FP) PO SCH (10:36)
[2021-12-03] MEDS: SODIUM ZIRCONIUM CYCLOSILICATE (LOKELMA) 5 GM PACKET PO SCH (10:37)
[2021-12-03] MEDS: BUDESONIDE/FORMETEROL FUMARATE 160/4.5 mcg INHALER IH SCH ×2 (10:38→21:15)
[2021-12-03] MEDS: CHOLECALCIFEROL (VIT D3) 5000 UNITS (125 MCG) CAP PO SCH (10:41)
[2021-12-03 11:28] LABS: HEMATOCRIT 32.8 % (32.4-45.2); HEMOGLOBIN 10.6 GM/dL (10.7-15.3); MCH 30.8 pg (25.7-33.7); MCHC 32.3 g/dl (32.0-36.0); MEAN CELL VOLUME 95.5 fl (80-96); MEAN PLT VOLUME 11.6 fl (7.5-11.1); PLATELET COUNT 220 10^3/uL (134-434); RBC 3.44 M/mm3 (3.60-5.2); RDW 20.9 % (11.6-15.6); WHITE BLOOD COUNT 21.2 K/mm3 (4.0-10.0)
[2021-12-03 11:44] LABS: CALCIUM 10.4 mg/dL (8.5-10.1)
[2021-12-03 11:45] LABS: ALBUMIN 1.9 g/dl (3.4-5.0); BLOOD UREA NITROGEN 13.6 mg/dL (7-18)
[2021-12-03 11:48] LABS: CREATININE 0.3 mg/dL (0.55-1.3)
[2021-12-03 11:49] LABS: BILIRUBIN,TOTAL 1.4 mg/dL (0.2-1); TOT PROT 4.4 g/dl (6.4-8.2)
[2021-12-03 23:47] VITALS: RESP 18
[2021-12-04] MEDS: NYSTATIN 500,000 UNITS/5 ML SUSPENSION PO SCH ×6 (01:08→23:20)
[2021-12-04] MEDS: oxyCODONE HCL 5 MG TABLET PO PRN ×4 (02:18→22:54)
[2021-12-04] MEDS: URSODIOL 300 MG CAPSULE PO SCH ×3 (06:31→21:18)
[2021-12-04] MEDS: SILDENAFIL CITRATE 20 MG TAB PO SCH ×3 (06:31→21:18)
[2021-12-04 09:26] LABS: HEMATOCRIT 34.7 % (32.4-45.2); HEMOGLOBIN 11.2 GM/dL (10.7-15.3); MCH 31.3 pg (25.7-33.7); MCHC 32.4 g/dl (32.0-36.0); MEAN CELL VOLUME 96.7 fl (80-96); MEAN PLT VOLUME 11.1 fl (7.5-11.1); PLATELET COUNT 236 10^3/uL (134-434); RBC 3.59 M/mm3 (3.60-5.2); RDW 20.6 % (11.6-15.6); WHITE BLOOD COUNT 19.5 K/mm3 (4.0-10.0)
[2021-12-04 09:34] LABS: CALCIUM 10.2 mg/dL (8.5-10.1)
[2021-12-04 09:35] LABS: BLOOD UREA NITROGEN 12.8 mg/dL (7-18)
[2021-12-04 09:38] LABS: CREATININE 0.3 mg/dL (0.55-1.3)
[2021-12-04 09:39] LABS: BILIRUBIN,TOTAL 1.5 mg/dL (0.2-1); TOT PROT 4.5 g/dl (6.4-8.2)
[2021-12-04] MEDS: ENOXAPARIN NA (PORCINE) 40 MG/0.4 ML DISP.SYRIN SQ SCH (10:44)
[2021-12-04] MEDS: FOLIC ACID 1 MG TABLET (FP) PO SCH (10:45)
[2021-12-04] MEDS: SODIUM ZIRCONIUM CYCLOSILICATE (LOKELMA) 5 GM PACKET PO SCH (10:45)
[2021-12-04] MEDS: CHOLECALCIFEROL (VIT D3) 5000 UNITS (125 MCG) CAP PO SCH (10:47)
[2021-12-04] MEDS: NADOLOL 20 MG TABLET (FP) PO SCH (10:48)
[2021-12-04] MEDS: BUDESONIDE/FORMETEROL FUMARATE 160/4.5 mcg INHALER IH SCH ×2 (11:04→21:18)
[2021-12-05] MEDS: URSODIOL 300 MG CAPSULE PO SCH (06:55)
[2021-12-05] MEDS: SILDENAFIL CITRATE 20 MG TAB PO SCH (06:55)
[2021-12-05] MEDS: oxyCODONE HCL 5 MG TABLET PO PRN ×2 (06:55→11:03)
[2021-12-05] MEDS: NYSTATIN 500,000 UNITS/5 ML SUSPENSION PO SCH ×2 (06:55→12:13)
[2021-12-05] MEDS ORDERED: guaiFENesin 200 MG/10 ML 10 ML UNIT-DOSE CUPS PO PRN (08:35)
[2021-12-05] MEDS ORDERED: FUROSEMIDE 40 MG TABLET (FP) PO SCH (10:00)
[2021-12-05] MEDS: NADOLOL 20 MG TABLET (FP) PO SCH (10:19)
[2021-12-05] MEDS: SODIUM ZIRCONIUM CYCLOSILICATE (LOKELMA) 5 GM PACKET PO SCH (10:21)
[2021-12-05] MEDS: FOLIC ACID 1 MG TABLET (FP) PO SCH (10:21)
[2021-12-05] MEDS: ENOXAPARIN NA (PORCINE) 40 MG/0.4 ML DISP.SYRIN SQ SCH ×2 (10:21→10:28)
[2021-12-05] MEDS: CHOLECALCIFEROL (VIT D3) 5000 UNITS (125 MCG) CAP PO SCH (10:22)
[2021-12-05] MEDS: BUDESONIDE/FORMETEROL FUMARATE 160/4.5 mcg INHALER IH SCH ×2 (10:27→10:29)
[2021-12-05 11:51] VITALS: BP 109/55; PULSE 87; TEMP 97.8
[2021-12-05 12:37] LABS: HEMOGLOBIN 10.6 GM/dL (10.7-15.3); MCH 32.1 pg (25.7-33.7); MCHC 33.2 g/dl (32.0-36.0); MEAN CELL VOLUME 96.9 fl (80-96); MEAN PLT VOLUME 10.8 fl (7.5-11.1); PLATELET COUNT 206 10^3/uL (134-434); RDW 20.8 % (11.6-15.6); WHITE BLOOD COUNT 17.4 K/mm3 (4.0-10.0)
[2021-12-05 12:56] LABS: BLOOD UREA NITROGEN 13.1 mg/dL (7-18)
[2021-12-05 12:59] LABS: CREATININE 0.2 mg/dL (0.55-1.3)
[2021-12-05 13:01] LABS: BILIRUBIN,TOTAL 1.5 mg/dL (0.2-1); TOT PROT 4.4 g/dl (6.4-8.2)
== END 2021-12-05 15:25 | DRG 177 ==
LOC: JER 09:59 → JERBED 12:13 → J6S 19:50
PROVIDERS: ADMIT Internal Medicine; ATTEND Internal Medicine
PROC: 3E0333Z Introduction of Anti-inflammatory into Peripheral Vein, Percutaneous Approach (ICD-10-PCS; principal; 2021-11-21)
PROC: XW033E5 Introduction of Remdesivir Anti-infective into Peripheral Vein, Percutaneous Approach, New Technology Group 5 (ICD-10-PCS; 2021-11-21)
DX: U07.1 COVID-19 (principal); I50.33 Acute on chronic diastolic (congestive) heart failure; J12.82 Pneumonia due to coronavirus disease 2019; E87.1 Hypo-osmolality and hyponatremia; J96.11 Chronic respiratory failure with hypoxia; D69.3 Immune thrombocytopenic purpura; N39.0 Urinary tract infection, site not specified; R18.8 Other ascites; B37.0 Candidal stomatitis; D83.9 Common variable immunodeficiency, unspecified; I27.20 Pulmonary hypertension, unspecified; K29.80 Duodenitis without bleeding; R91.8 Other nonspecific abnormal finding of lung field; E87.5 Hyperkalemia; B96.1 Klebsiella pneumoniae [K. pneumoniae] as the cause of diseases classified elsewhere; Z90.81 Acquired absence of spleen; Z99.81 Dependence on supplemental oxygen
CPT/HCPCS: 0241U-QW; 36415; 71045-TC-FY; 71250-TC; 74177-TC; 76705-TC; 80048; 80053; 80061; 81003; 82150; 82248; 82784; 82787; 83690; 83735; 83880; 83883; 84100; 84484; 85025; 85027; 85610; 85730; 86140; 87040; 87070; 87086; 87186; 87205; 87305; 87449; 87899; 88300-TC; 93005; 93010; 93306-TC; 97116-GP; 97161-GP; 99285-25; C9399; C9803-CS; J1100; J1459; U0003; U0005

== ENCOUNTER 2021-12-22 15:10 | Inpatient (IN) | payer MEDICARE, OTHER ==
[2021-12-22] MEDS ORDERED: NOREPINEPHRINE BITARTRATE 4 MG/4 ML ML IV ONE (15:16)
[2021-12-22 18:15] LABS: CHLORIDE 100 mmol/L (98-107); SODIUM 144 mmol/L (136-145)
[2021-12-22 18:18] LABS: ALBUMIN 1.5 g/dl (3.4-5.0); ANION GAP 17 MMOL/L (8-16); BLOOD UREA NITROGEN 41.5 mg/dL (7-18); CALCIUM 10.4 mg/dL (8.5-10.1); CO2 27 mmol/L (21-32); GLUCOSE,RANDOM 61 mg/dL (74-106); MAGNESIUM 2.8 mg/dL (1.8-2.4)
[2021-12-22 18:21] LABS: CREATININE 1.2 mg/dL (0.55-1.3); SGOT/AST 947 U/L (15-37); SGPT/ALT 196 U/L (13-61)
[2021-12-22 18:22] LABS: MCH 31.9 pg (25.7-33.7); MCHC 28.6 g/dl (32.0-36.0); MEAN CELL VOLUME 111.5 fl (80-96); MEAN PLT VOLUME 12.2 fl (7.5-11.1); PLATELET COUNT 282 10^3/uL (134-434); RBC 3.14 M/mm3 (3.60-5.2); RDW 20.5 % (11.6-15.6)
[2021-12-22 18:23] LABS: BILIRUBIN,TOTAL 2.1 mg/dL (0.2-1); TOT PROT 3.4 g/dl (6.4-8.2); WHITE BLOOD COUNT 40.4 K/mm3 (4.0-10.0)
[2021-12-22 18:24] LABS: ALK PHOS 276 U/L (45-117)
[2021-12-22] MEDS: CEFEPIME 2 GM in DEXTROSE 5%-WATER 100 ML IVPB SCH (20:18)
[2021-12-22 20:20] LABS: ANISOCYTOSIS 1+; MACROCYTOSIS 3+; OVALOCYTE 1+; PLATELET ESTIMATE NORMAL; TARGET CELLS 1+; TOXIC GRANULATION 1+
[2021-12-22 20:53] LABS: ARTERIAL BLD GAS O2 SATURATION 92.9 % (95-98); ARTERIAL BLOOD GAS BASE EXCESS 0.7 mmol/L (-2-2); ARTERIAL BLOOD GAS pH 7.301 (7.350-7.450)
[2021-12-22 20:55] LABS: ALLENS TEST POSITIVE
[2021-12-22 20:56] LABS: VENT MODE A/C; VENT RATE 12
[2021-12-22 21:08] LABS: LACTIC ACID 7.6 mmol/L (0.4-2.0)
[2021-12-22] MEDS ORDERED: LACTATED RINGERS SOLUTION 1,000 ML/1,000 ML INFUS.BAG IV ONE (21:14)
[2021-12-22] MEDS: CHLORHEXIDINE GLUCONATE 4% CLEANSER FOR DECOLONIZATION TP SCH (21:37)
[2021-12-22] MEDS: HEPARIN NA (PORCINE) 5,000 UNITS/ML 1ML VIAL SQ SCH (21:37)
[2021-12-22] MEDS ORDERED: CHLORHEXIDINE GLUCONATE 4% CLEANSER FOR DECOLONIZATION TP SCH (22:00)
[2021-12-22] MEDS ORDERED: MUPIROCIN 2% TOPICAL OINTMENT FOR DECOLONIZATION NS SCH (22:00)
[2021-12-22] MEDS: LINEZOLID 600 MG PREMIX BAG 600 MG/300 ML BAG IVPB SCH (22:02)
[2021-12-22] MEDS: VASOPRESSIN 40 UNITS/100 ML BAG IV SCH (22:04)
[2021-12-22] MEDS: MUPIROCIN 2% TOPICAL OINTMENT FOR DECOLONIZATION NS SCH (22:05)
[2021-12-22] MEDS: NOREPINEPHRINE BITARTRATE 16,000 MCG in SODIUM CHLORIDE 484 ML IV SCH (22:30)
[2021-12-22] MEDS ORDERED: DEXTROSE 5%-WATER - 1,000 ML IV SCH (23:45)
[2021-12-23] MEDS: CEFEPIME 2 GM in DEXTROSE 5%-WATER 100 ML IVPB SCH ×2 (02:47→10:44)
[2021-12-23] MEDS: NOREPINEPHRINE BITARTRATE 16,000 MCG in SODIUM CHLORIDE 484 ML IV SCH ×2 (03:00→22:30)
[2021-12-23] MEDS: HEPARIN NA (PORCINE) 5,000 UNITS/ML 1ML VIAL SQ SCH ×3 (06:44→21:24)
[2021-12-23 07:12] LABS: ARTERIAL BLD GAS O2 SATURATION 94.2 % (95-98); ARTERIAL BLOOD GAS BASE EXCESS -1.4 mmol/L (-2-2); ARTERIAL BLOOD GAS PO2 72.8 mmHg (80-100); ARTERIAL BLOOD GAS pH 7.369 (7.350-7.450)
[2021-12-23 07:17] LABS: VENT MODE A/C; VENT RATE 20
[2021-12-23 07:25] LABS: CHLORIDE 101 mmol/L (98-107); SODIUM 141 mmol/L (136-145)
[2021-12-23 07:31] LABS: ALBUMIN 1.5 g/dl (3.4-5.0); ANION GAP 11 MMOL/L (8-16); CO2 29 mmol/L (21-32); GLUCOSE,RANDOM 125 mg/dL (74-106); MAGNESIUM 1.9 mg/dL (1.8-2.4)
[2021-12-23 07:33] LABS: SGPT/ALT 409 U/L (13-61)
[2021-12-23 07:34] LABS: CREATININE 1.3 mg/dL (0.55-1.3)
[2021-12-23 07:35] LABS: BILIRUBIN,TOTAL 4.2 mg/dL (0.2-1); TOT PROT 3.1 g/dl (6.4-8.2)
[2021-12-23 07:42] LABS: LACTIC ACID 5.3 mmol/L (0.4-2.0)
[2021-12-23 07:45] LABS: ALK PHOS 240 U/L (45-117); CALCIUM 8.2 mg/dL (8.5-10.1); SGOT/AST 1535 U/L (15-37)
[2021-12-23 07:48] LABS: HEMATOCRIT 32.1 % (32.4-45.2); HEMOGLOBIN 10.2 GM/dL (10.7-15.3); MCH 32.9 pg (25.7-33.7); MCHC 31.9 g/dl (32.0-36.0); MEAN CELL VOLUME 103.1 fl (80-96); MEAN PLT VOLUME 11.2 fl (7.5-11.1); PLATELET COUNT 239 10^3/uL (134-434); RBC 3.11 M/mm3 (3.60-5.2); RDW 19.4 % (11.6-15.6)
[2021-12-23 08:04] LABS: WHITE BLOOD COUNT 40.6 K/mm3 (4.0-10.0)
[2021-12-23] MEDS: LINEZOLID 600 MG PREMIX BAG 600 MG/300 ML BAG IVPB SCH (08:17)
[2021-12-23] MEDS: MUPIROCIN 2% TOPICAL OINTMENT FOR DECOLONIZATION NS SCH ×2 (10:44→21:24)
[2021-12-23 11:14] LABS: LACTIC ACID 5.5 mmol/L (0.4-2.0)
[2021-12-23] MEDS ORDERED: LACTATED RINGERS SOLUTION 1,000 ML/1,000 ML INFUS.BAG IV SCH ×2 (12:00→13:00)
[2021-12-23 14:59] LABS: EPI CELLS 27 /uL (0-25.1); HYALINE CASTS 9 /uL (0-3.1); URINE APPEARANCE TURBID; URINE BACTERIA 1956 /uL (0-1359); URINE BILIRUBIN NEGATIVE (NEGATIVE); URINE COLOR YELLOW; URINE GLUCOSE (UA) NEGATIVE (NEGATIVE); URINE KETONE NEGATIVE (NEGATIVE); URINE LEUK ESTERASE 3+ (NEGATIVE); URINE NITRITE POSITIVE (NEGATIVE); URINE PROTEIN 2+ (NEGATIVE); URINE RBC 15 /uL (0-23.9); URINE UROBILINOGEN 0.2 mg/dL (0.2-1.0); URINE WBC 679 /uL (0-25.8)
[2021-12-23 17:26] LABS: LACTIC ACID 6.1 mmol/L (0.4-2.0)
[2021-12-23] MEDS: MEROPENEM 1 GM in DEXTROSE 5%-WATER 100 ML IVPB SCH (17:38)
[2021-12-23] MEDS ORDERED: CEFEPIME 2 GM in DEXTROSE 5%-WATER 100 ML IVPB SCH (19:00)
[2021-12-23] MEDS ORDERED: LINEZOLID 600 MG PREMIX BAG 600 MG/300 ML BAG IVPB SCH (19:00)
[2021-12-23 19:52] LABS: CREATININE, URINE RANDOM < 13.0 mg/dL (30-150)
[2021-12-23] MEDS: VANCOMYCIN/WATER FOR INJ (PEG) 1,000 MG/200 ML BAG IVPB SCH (20:10)
[2021-12-23] MEDS: CHLORHEXIDINE GLUCONATE 4% CLEANSER FOR DECOLONIZATION TP SCH (21:24)
[2021-12-23] MEDS: VASOPRESSIN 40 UNITS/100 ML BAG IV SCH (21:24)
[2021-12-24] MEDS: MEROPENEM 1 GM in DEXTROSE 5%-WATER 100 ML IVPB SCH ×4 (01:16→17:12)
[2021-12-24] MEDS: VANCOMYCIN/WATER FOR INJ (PEG) 1,000 MG/200 ML BAG IVPB SCH (02:50)
[2021-12-24] MEDS: HEPARIN NA (PORCINE) 5,000 UNITS/ML 1ML VIAL SQ SCH ×3 (05:12→21:25)
[2021-12-24 07:18] LABS: HEMATOCRIT 31.8 % (32.4-45.2); MCH 32.1 pg (25.7-33.7); MCHC 31.4 g/dl (32.0-36.0); MEAN CELL VOLUME 102.2 fl (80-96); PLATELET COUNT 149 10^3/uL (134-434); RBC 3.11 M/mm3 (3.60-5.2); RDW 19.2 % (11.6-15.6)
[2021-12-24 07:46] LABS: CALCIUM 7.9 mg/dL (8.5-10.1)
[2021-12-24 07:47] LABS: ALBUMIN 1.4 g/dl (3.4-5.0); BLOOD UREA NITROGEN 59.8 mg/dL (7-18); MAGNESIUM 1.7 mg/dL (1.8-2.4)
[2021-12-24 07:50] LABS: CREATININE 1.8 mg/dL (0.55-1.3); PHOSPHOROUS 4.5 mg/dL (2.5-4.9)
[2021-12-24 07:52] LABS: BILIRUBIN,TOTAL 3.5 mg/dL (0.2-1); TOT PROT 3.1 g/dl (6.4-8.2)
[2021-12-24] MEDS: MUPIROCIN 2% TOPICAL OINTMENT FOR DECOLONIZATION NS SCH ×2 (09:19→21:21)
[2021-12-24] MEDS: LACTATED RINGERS SOLUTION 1,000 ML/1,000 ML INFUS.BAG IV SCH (12:18)
[2021-12-24] MEDS ORDERED: ACETAMINOPHEN 1000 MG/100 ML BAG IVPB STA (17:17)
[2021-12-24] MEDS ORDERED: FUROSEMIDE 40 MG/4 ML INJECTABLE VIAL ONE (18:33)
[2021-12-24] MEDS: FUROSEMIDE INJECTION 100 MG in SODIUM CHLORIDE 90 ML IVPB SCH (21:20)
[2021-12-24] MEDS: VASOPRESSIN 40 UNITS/100 ML BAG IV SCH (21:21)
[2021-12-24] MEDS: CHLORHEXIDINE GLUCONATE 4% CLEANSER FOR DECOLONIZATION TP SCH (21:21)
[2021-12-25] MEDS ORDERED: INSULIN (NOVOLOG) ASPART 100 UNITS/ML 10ML VIAL ONE (00:23)
[2021-12-25] MEDS: MEROPENEM 1 GM in DEXTROSE 5%-WATER 100 ML IVPB SCH ×3 (02:03→17:52)
[2021-12-25] MEDS: NOREPINEPHRINE BITARTRATE 16,000 MCG in SODIUM CHLORIDE 484 ML IV SCH ×2 (05:10→17:52)
[2021-12-25] MEDS: HEPARIN NA (PORCINE) 5,000 UNITS/ML 1ML VIAL SQ SCH ×3 (05:10→21:28)
[2021-12-25 06:52] LABS: HEMATOCRIT 30.2 % (32.4-45.2); HEMOGLOBIN 9.6 GM/dL (10.7-15.3); MCH 32.8 pg (25.7-33.7); MCHC 31.9 g/dl (32.0-36.0); MEAN CELL VOLUME 102.8 fl (80-96); MEAN PLT VOLUME 12.3 fl (7.5-11.1); PLATELET COUNT 87 10^3/uL (134-434); RBC 2.94 M/mm3 (3.60-5.2); RDW 19.5 % (11.6-15.6)
[2021-12-25 07:09] LABS: WHITE BLOOD COUNT 39.4 K/mm3 (4.0-10.0)
[2021-12-25 07:20] LABS: ALBUMIN 1.2 g/dl (3.4-5.0); CALCIUM 7.5 mg/dL (8.5-10.1)
[2021-12-25 07:23] LABS: CREATININE 2.1 mg/dL (0.55-1.3)
[2021-12-25 07:25] LABS: LACTIC ACID 3.5 mmol/L (0.4-2.0); TOT PROT 2.8 g/dl (6.4-8.2)
[2021-12-25] MEDS: MUPIROCIN 2% TOPICAL OINTMENT FOR DECOLONIZATION NS SCH ×2 (10:09→21:28)
[2021-12-25 10:10] LABS: ANISOCYTOSIS 0; MACROCYTOSIS 1+
[2021-12-25] MEDS: LACTATED RINGERS SOLUTION 1,000 ML/1,000 ML INFUS.BAG IV SCH (10:27)
[2021-12-25 17:28] VITALS: BMI 33.6
[2021-12-25] MEDS ORDERED: ACETAMINOPHEN 1000 MG/100 ML BAG IVPB STA (17:53)
[2021-12-25] MEDS ORDERED: DOPAMINE 400 MG/D5W - 400,000 MCG/250 ML INFUS.BAG IVPB SCH (20:00)
[2021-12-25] MEDS: FUROSEMIDE INJECTION 100 MG in SODIUM CHLORIDE 90 ML IVPB SCH (20:22)
[2021-12-25] MEDS: CHLORHEXIDINE GLUCONATE 4% CLEANSER FOR DECOLONIZATION TP SCH (21:28)
[2021-12-26] MEDS: MEROPENEM 1 GM in DEXTROSE 5%-WATER 100 ML IVPB SCH ×2 (02:33→09:38)
[2021-12-26] MEDS ORDERED: PANTOPRAZOLE SODIUM 160 MG in SODIUM CHLORIDE 290 ML IVPB SCH (06:30)
[2021-12-26 06:36] LABS: HEMATOCRIT 30.6 % (32.4-45.2); HEMOGLOBIN 9.8 GM/dL (10.7-15.3); MCHC 32.1 g/dl (32.0-36.0); MEAN CELL VOLUME 102.7 fl (80-96); RBC 2.98 M/mm3 (3.60-5.2); RDW 19.4 % (11.6-15.6)
[2021-12-26] MEDS ORDERED: ACETAMINOPHEN INJECTION 100 ML IVPB ONE (06:37)
[2021-12-26] MEDS: NOREPINEPHRINE BITARTRATE 16,000 MCG in SODIUM CHLORIDE 484 ML IV SCH (06:40)
[2021-12-26] MEDS ORDERED: ACETAMINOPHEN 1000 MG/100 ML BAG IVPB PRN (06:40)
[2021-12-26] MEDS: HEPARIN NA (PORCINE) 5,000 UNITS/ML 1ML VIAL SQ SCH (06:40)
[2021-12-26 06:56] LABS: BLOOD UREA NITROGEN 84.6 mg/dL (7-18); CALCIUM 7.2 mg/dL (8.5-10.1); MAGNESIUM 1.6 mg/dL (1.8-2.4)
[2021-12-26 06:59] LABS: CREATININE 2.4 mg/dL (0.55-1.3); PHOSPHOROUS 5.6 mg/dL (2.5-4.9)
[2021-12-26 07:18] LABS: WHITE BLOOD COUNT 39.4 K/mm3 (4.0-10.0)
[2021-12-26] MEDS ORDERED: MAGNESIUM SULFATE IN WATER 2 GM/50 ML IVPB IVPB ONE (08:15)
[2021-12-26] MEDS: MUPIROCIN 2% TOPICAL OINTMENT FOR DECOLONIZATION NS SCH (09:39)
[2021-12-26] MEDS ORDERED: PANTOPRAZOLE SODIUM 40 MG VIAL IVPUSH SCH (10:00)
[2021-12-26 10:36] LABS: PLATELET COUNT 69 10^3/uL (134-434)
[2021-12-26] MEDS ORDERED: LORazepam 2 MG/ML SDV VIAL IVPUSH PRN (10:53)
[2021-12-26] MEDS ORDERED: MORPHINE SULFATE/0.9% NACL/PF 100 MG/100 ML BAG IVPB SCH (11:00)
[2021-12-26 15:27] VITALS: TEMP 99.3
[2021-12-26 15:28] VITALS: BP 61/32; PULSE 101; RESP 34
[2021-12-26] MEDS ORDERED: PIPERACILLIN/TAZOB 2.25 GM 2.25 GM in DEXTROSE 5%-WATER - 50 ML IVPB SCH (18:00)
== END 2021-12-26 13:34 | disposition expired | DRG 871 ==
LOC: JER 15:10 → JERBED 16:35 → JICU 18:53
PROVIDERS: ADMIT Internal Medicine Pulmonary Disease; ATTEND Family Medicine
PROC: 05HN33Z Insertion of Infusion Device into Left Internal Jugular Vein, Percutaneous Approach (ICD-10-PCS; principal; 2021-12-22)
PROC: B544ZZA Ultrasonography of Left Jugular Veins, Guidance (ICD-10-PCS; 2021-12-22)
PROC: 03HY32Z Insertion of Monitoring Device into Upper Artery, Percutaneous Approach (ICD-10-PCS; 2021-12-22)
PROC: 0DH67UZ Insertion of Feeding Device into Stomach, Via Natural or Artificial Opening (ICD-10-PCS; 2021-12-22)
PROC: 5A1945Z Respiratory Ventilation, 24-96 Consecutive Hours (ICD-10-PCS; 2021-12-22)
DX: A41.89 Other specified sepsis (principal); I46.9 Cardiac arrest, cause unspecified; R65.21 Severe sepsis with septic shock; J96.21 Acute and chronic respiratory failure with hypoxia; I50.33 Acute on chronic diastolic (congestive) heart failure; J84.9 Interstitial pulmonary disease, unspecified; D83.9 Common variable immunodeficiency, unspecified; E87.2 Acidosis; G93.1 Anoxic brain damage, not elsewhere classified; N17.9 Acute kidney failure, unspecified; I24.8 Other forms of acute ischemic heart disease; Q89.01 Asplenia (congenital); J98.11 Atelectasis; R18.8 Other ascites; I27.20 Pulmonary hypertension, unspecified; I11.0 Hypertensive heart disease with heart failure; D64.9 Anemia, unspecified; D69.6 Thrombocytopenia, unspecified; R79.89 Other specified abnormal findings of blood chemistry; R91.8 Other nonspecific abnormal finding of lung field; K74.60 Unspecified cirrhosis of liver; E66.9 Obesity, unspecified; Z68.33 Body mass index [BMI] 33.0-33.9, adult; I07.1 Rheumatic tricuspid insufficiency; R59.1 Generalized enlarged lymph nodes; E87.5 Hyperkalemia; Z90.81 Acquired absence of spleen; Z99.81 Dependence on supplemental oxygen; Z88.1 Allergy status to other antibiotic agents
CPT/HCPCS: 36415; 36600; 71045-TC-FY; 80048; 80053; 81003; 82436; 82550; 82553; 82570; 82607; 82746; 82803; 83605; 83735; 84100; 84133; 84300; 84484; 85025; 85027; 85651; 85730; 86140; 86480; 87040; 87070; 87186; 87205; 87305; 87633; 93005; 93010; 93306-TC; 94002; 99291; C9803-CS; J1644; J3490; U0003; U0005